=== PATIENT | female | born 1960 | race Caucasian/White ===

== ENCOUNTER 2017-03-02 14:43 | Emergency (ER) | payer OTHER ==
[~2017-03-02] VITALS: Ht 157.5 cm; Wt 50.8 kg
== END 2017-03-02 15:11 | disposition home or self-care (01) ==
LOC: ER 14:46
DX: L30.9 Dermatitis, unspecified (principal); J45.909 Unspecified asthma, uncomplicated; Z85.828 Personal history of other malignant neoplasm of skin; F17.200 Nicotine dependence, unspecified, uncomplicated
CPT/HCPCS: A4606; Z7610